=== PATIENT | female | born 2000 | race Caucasian/White ===

== ENCOUNTER 2021-02-10 10:49 | Emergency (ER) | payer OTHER, SELFPAY ==
[2021-02-10 10:57] VITALS: BP 106/66; PULSE 99; RESP 16; TEMP 36.6; O2SAT 100
--- NOTE | 2021-02-10 11:10 | ED.URI ---
HPI - URI/Sore Throat General Chief Complaint: Upper Respiratory Infection Stated Complaint: sinus issues/ear discharge/eye irritation Time Seen by Provider: 02/10/21 11:10 Source: patient and RN notes reviewed Mode of arrival: ambulatory Limitations: no limitations History of Present Illness HPI Narrative: 20-year-old female presents to the [facility] with complaints of stuffy nose, sinus pressure, right ear pain that now has some drainage, left eye irritation, states every time that she gets a sinus infection she gets pinkeye. Has recently traveled from [place] via car. Denies any past medical or surgical history. Denies any fevers. No chest pain or shortness of breath. No abdominal pain, nausea, vomiting or diarrhea. Related Data Home Medications Medication Instructions Recorded Confirmed levonorgestrel 14 mcg/24 hrs (3 1 device INTRAUTERINE ONCE 10/03/20 02/10/21 yrs) 13.5 mg intrauterine device Allergies Allergy/AdvReac Type Severity Reaction Status Date / Time No Known Allergies Allergy Unknown Verified 02/10/21 12:49 Review of Systems Review of Systems: All systems reviewed & are unremarkable except as noted in HPI and below Constitutional: Constitutional: Reports no additional constitutional complaints, Denies chills and Denies fever(s) Eyes: Eyes: Reports as per HPI (Left eye irritation), Denies change in vision and Denies photophobia ENT: Reports as per HPI and Reports nasal congestion Comments: Right ear pain with discharge Cardiovascular: Cardiovascular: Reports no additional cardiovascular complaints, Denies chest pain and Denies radiating jaw, neck or arm pain Respiratory: Respiratory: Reports no additional respiratory complaints, Denies cough and Denies dyspnea Gastrointestinal: Gastrointestinal: Reports no additional gastrointestinal complaints, Denies abdominal pain, Denies diarrhea, Denies nausea and Denies vomiting Genitourinary: Genitourinary: Reports no additional female genitourinary complaints Musculoskeletal: Musculoskeletal: Reports no additional musculoskeletal complaints and Denies back pain Integumentary/Breasts: Skin/Breast: Reports system reviewed and no additional complaints, except as docu and Denies rash Neurologic: Reports system reviewed and no additional complaints, except as documented Psychiatric: Psychiatric: Reports no additional psychiatric complaints Allergic/Immunologic: Allergic/Immunologic: Reports no additional allergic/immunologic complaints PMFSH Past Medical History Medical History Asthma Family History Family History Grandparent Diabetes mellitus Carcinoma of colon Family history of malignant neoplasm of ovary Father Family history of hypercholesterolemia Social History Social History Smoking status: Never smoker Alcohol intake: never Comments At the time of my signature, I reviewed and agree with the nursing past medical, surgical, social, and family history. There is no relevant family history pertinent to the patient complaint. Exam Const: General: healthy appearing, no acute distress and alert Nutritional Appearance: well nourished Orientation/consciousness: patient oriented x3 Limitations: no limitations HENMT: Head: normal to inspection Ears: external ears normal, TM normal on the left, mastoids normal, Abnormal EAC present otic discharge (Right) purulent and TM abnormal perforated with purulent discharge on the right General nose exam: Normal external nose present Face and sinus: normal facial exam and sinus tenderness frontal and maxillary Mouth: Yes Normal oral and palatal mucosa present and Yes lip normal Throat: posterior oropharynx normal, tonsils normal and uvula midline Eyes: Conjunctivae: conjunctival abnormality left conjunctival injection (Injected, red) local
== END 2021-02-10 11:30 | disposition home or self-care (01) ==
PROVIDERS: Emergency Provider Nurse Practitioner; PCP Internal Medicine
DX: H66.91 Otitis media, unspecified, right ear (principal); H72.91 Unspecified perforation of tympanic membrane, right ear; J45.909 Unspecified asthma, uncomplicated
CPT/HCPCS: 99213; G0463

== ENCOUNTER → 2021-10-20 13:47 | Outpatient (CLI) | payer OTHER, SELFPAY ==
--- NOTE | ~2021-10-20 | US_ITS ---
EXAMINATION: US pelvic complete w TV EXAM DATE: 10/20/2021 14:19 INDICATION: R10.2 - Pelvic and perineal pain. TECHNIQUE: Pelvic transabdominal and transvaginal sonogram was performed. There are multiple graysca le and Doppler images available for interpretation. There is no prior study for comparison. FINDINGS: Uterus measures 8.8 x 4.2 x 4.7 cm, with IUD centrally located inside the endometrial cavi ty. Endometrial stripe measures 4 mm, within normal limits. There is small free pelvic fluid. Right adnexa: The ovary measures 3.1 x 2.4 x 3.0 cm and is morphologically normal. Ovarian vascular f low confirmed. Left adnexa: The ovary measures 4.5 x 2.2 x 2.3 cm and is morphologically normal. Ovarian vascular fl ow confirmed. Prominent left periadnexal veins. IMPRESSION: 1. Prominent left adnexal veins. Possible pelvic congestion syndrome. 2. Small free pelvic fluid, physiologic. 3. IUD in position. Reviewed, dictated and finalized at location A. K DRIVING INSTRUCTOR
== END ==
PROVIDERS: Visit Provider Obstetrics & Gynecology
DX: R10.2 Pelvic and perineal pain (principal); Z97.5 Presence of (intrauterine) contraceptive device
CPT/HCPCS: 76830; 76856

== ENCOUNTER 2023-08-12 16:32 | Emergency (ER) | payer OTHER, SELFPAY ==
[2023-08-12] VITALS (16 sets, daily range): BP systolic 93–120; BP diastolic 61–82; PULSE 64–95; RESP 12–27; TEMP 36.7; O2SAT 98–100
--- NOTE | ~2023-08-12 | XR_ITS ---
EXAMINATION: XR chest 1V portable Exam Date/Time: 08/12/2023 16:40 PATIENT SERVICE ASSOCIATE HISTORY: cp, ANTERIOR AND POSTERIOR SINCE YESTERDAY Comparison: 11/22/2017. RESULT: Lines, tubes, and devices: None. Lungs and pleura: Clear. Cardiomediastinal silhouette: Stable. Other: No acute osseous or upper abdominal finding. IMPRESSION: No acute cardiopulmonary process. Reviewed, dictated and finalized at location K. ENT SERVICE ASSOCIATE
--- NOTE | 2023-08-12 16:32 | ECG_ITS ---
Measurements Intervals [place] Rate: 79 P: 75 UT: 169 QRS: 93 QRSD: 92 T: 42 QT: 338 QTc: 388 Interpretive Statements SINUS RHYTHM WITH MARKED SINUS ARRHYTHMIA RIGHT AXIS DEVIATION POSSIBLE LEFT ATRIAL ENLARGEMENT INCOMPLETE RIGHT BUNDLE BRANCH BLOCK BASELINE WANDER- V4-V6 BORDERLINE ECG NO PREVIOUS ECG AVAILABLE FOR COMPARISON Electronically Signed On 08-12-2023 17:40:49 LUMBER TYING MACHINE OPERATOR by Vishal Harrison D.O.
[2023-08-12 16:48] LABS: Basophils Absolute Auto 0.1 K/mm3 (0.0-0.1); Basophils Percent Auto 0.8 % (0.2-1.2); Eosinophils Absolute Auto 0.6 K/mm3 (0-0.3); Eosinophils Percent Auto 6.2 % (0-4.4); Hematocrit 40.7 % (37.0-47.0); Hemoglobin 13.2 g/dL (12.0-15.0); Immature Granulocyte Absolute 0.03 K/mm3 (0.00-0.031); Immature Granulocyte Percent A 0.3 % (0-0.5); Lymphocytes Absolute Auto 2.62 K/mm3 (0.9-3.2); Lymphocytes Percent Auto 27.5 % (18.3-44.2); Mean Corpuscular HGB Conc 32.4 g/dl (32-36); Mean Corpuscular Hemoglobin 30.3 pg (26-34); Mean Corpuscular Volume 93.6 fl (80-100); Mean Platelet Volume 10.2 fl (7.4-10.4); Monocytes Absolute Auto 0.5 K/mm3 (0.1-0.6); Monocytes Percent Auto 5.6 % (2.6-8.5); Neutrophils Absolute Auto 5.7 K/mm3 (1.3-6.7); Neutrophils Percent Auto 59.6 % (45.5-73.1); Platelet Count Result 225 k/mm3 (150-375); Red Blood Count 4.35 M/mm3 (4.2-5.4); Red Cell Distribution Width 12.2 % (11.5-14.5); White Blood Count 9.5 K/mm3 (4.5-10.0)
[2023-08-12 16:56] LABS: Alanine Aminotransferase 18 U/L (6-35); Albumin Level 4.5 g/dL (3.5-5.1); Alkaline Phosphatase 50 U/L (38-126); Anion Gap 10 mmol/L (8-16); Aspartate Amino Transferase 28 U/L (14-36); Bilirubin,Total 0.7 mg/dL (0.2-1.3); Blood Urea Nitrogen 12 mg/dL (7-17); Calcium 9.7 mg/dL (8.4-10.2); Carbon Dioxide 26 mmol/L (22-30); Chloride 102 mmol/L (98-107); Estimated CRCL calculation 77 ml/min; Estimated Glomerular Filt Rate > 60; Glucose 94 mg/dL (65-110); Lipase 60 U/L (23-300); Potassium 4.1 mmol/L (3.4-5.0); Sodium 138 mmol/L (137-145)
[2023-08-12 16:59] LABS: Prothrombin Time 13.6 Seconds (11.1-14.7)
--- NOTE | 2023-08-12 16:59 | ED.CHESTPAIN ---
HPI - Chest Pain General Chief Complaint: Chest Pain Stated Complaint: chest pain Time Seen by Provider: 08/12/23 16:37 Source: patient Mode of arrival: ambulatory Limitations: no limitations History of Present Illness HPI narrative: Dulce Maria is a 23-year-old female patient presenting to the clinic today with complaints mid sternal chest pain that started yesterday. Reports that the pain is worse when taking a deep breath and standing up. Rates her pain currently a 2/10. Denies any chest injury or heavy lifting. Related Data Home Medications Medication Instructions Recorded Confirmed levonorgestrel 14 mcg/24 hrs (3 1 device intrauterine ONCE 11/20/22 11/20/22 yrs) 13.5 mg intrauterine device (Yue) spironolactone 100 mg tablet 100 mg PO DAILY 11/20/22 11/20/22 Allergies Allergy/AdvReac Type Severity Reaction Status Date / Time Penicillins Allergy Mild Rash Verified 11/20/22 10:21 Review of Systems Review of Systems: Pertinent positives per HPI. Patient denies any fever, chills, rash, headache, visual changes, dizziness, cough, runny nose, sore throat, shortness of breath, palpitations, nausea, vomiting, diarrhea, constipation, abdominal pain, or any urinary issues. PMFSH Past Medical History Medical History Asthma Family History Family History Grandparent Diabetes mellitus Carcinoma of colon Family history of malignant neoplasm of ovary Father Family history of hypercholesterolemia Social History Social History Smoking status: Never smoker Alcohol intake: never Substance use: never Substance use type: does not use Lack of Transportation: No Lack of Food: Never True Current Housing: I Have Housing Concerned About Future Housing: No Difficulty Paying Gas/Electric Bills: No Difficulty Paying for Meds: No Currently Unemployed: No Education: Bachelor's Degree Difficulty w/ Childcare or Family Care: No Comments At the time of my signature, I reviewed and agree with the nursing past medical, surgical, social, and family history. There is no relevant family history pertinent to the patient complaint. Exam Narrative: General: Well-developed, well nourished, in no apparent distress Head: Normocephalic, atraumatic. Cardio: Regular rate and rhythm, s1 and s2 normal, no murmur appreciated. Resp: Clear to auscultation bilaterally, no rhonchi, rales, wheezing or rubs. Extremities: No deformity, no edema, no cyanosis, capillary refill less than 2 seconds, peripheral pulses palpable and strong. Integumentary: [place], warm, and dry, intact without lesion, no rashes. Course Course Emergency Course: Portions of this record may have been created with voice recognition software. Vital Signs Vital signs: Vital Signs Temperature 36.7 C 08/12/23 16:39 Pulse Rate 85 08/12/23 16:39 Respiratory Rate 16 08/12/23 16:39 Blood Pressure 120/79 08/12/23 16:39 Pulse Oximetry 100 08/12/23 16:39 Oxygen Delivery Room Air 08/12/23 16:39 Temperature 36.7 C 08/12/23 16:39 Pulse Rate 74 08/12/23 16:49 Respiratory Rate 16 08/12/23 16:39 Blood Pressure 120/79 08/12/23 16:39 Pulse Oximetry 100 08/12/23 16:49 Oxygen Delivery Room Air 08/12/23 16:49 Vital signs reviewed MDM - Chest Pain MDM Narrative Medical decision making narrative: At the time of visit patient is resting comfortably on the exam table. Patient appears to be nontoxic. EKG shows sinus rhythm with sinus arrhythmia heart rate 79 beats per minute, no ectopy ST-elevation or depression noted. No T-wave inversion. CBC and CMP are unremarkable. Troponin level is less than 0.012. Denies history of any acute coronary disease, hypercholesterolemia, or high blood pressure. Chest x-ray shows no acute cardiopulmonary
[2023-08-12 17:00] LABS: Partial Thromboplastin Time 31.7 SECONDS (22.3-36.8)
[2023-08-12 17:29] LABS: Troponin I < 0.012 ng/mL (0.000-0.034)
== END 2023-08-12 18:49 | disposition home or self-care (01) ==
PROVIDERS: Emergency Medicine; Emergency Provider Nurse Practitioner Family
DX: R07.89 Other chest pain (principal); J45.909 Unspecified asthma, uncomplicated; R94.31 Abnormal electrocardiogram [ECG] [EKG]; I45.10 Unspecified right bundle-branch block
CPT/HCPCS: 36415; 71045; 80053; 83690; 84484; 85025; 85610; 85730; 93005; 99284